=== PATIENT | male | born 1975 | race Two or more races ===

== ENCOUNTER 2024-02-03 06:33 | Emergency (ER) | payer OTHER, SELFPAY ==
[2024-02-03 06:37] VITALS: BMI 28.2
[2024-02-03 06:39] VITALS: BP 121/77
[2024-02-03 07:00] VITALS: BP 127/81
[2024-02-03 07:03] LABS: % Basophils 0.4 % (0-2); % Eosinophils 0.1 % (0-6); % Immature Granulocytes 0.3 % (0-0.5); % Lymphocytes 13.7 % (20.5-51.1); % Monocytes 9.6 % (1.7-9.3); % Neutrophils 75.9 % (42.2-75.2); Absolute Lymphocytes 1.4 10^3/uL (1.2-3.4); Absolute Neutrophils 7.5 10^3/uL (1.4-6.5); Hematocrit 42.8 % (39.0-52.0); Hemoglobin 15.2 g/dL (13.0-18.0); Mean Corp Hgb Conc. 35.5 g/dL (33.0-37.0); Mean Corpuscular Hgb 29.2 pg (27.0-31.0); Mean Corpuscular Volume 82.3 fL (80.0-94.0); Mean Platelet Volume 10.8 fL (7.4-10.4); Nucleated Red Blood Cells % 0 % (-); Platelet Count 195 10^3/uL (130-400); Red Cell Dist. Width 13.6 % (11.5-14.5); White Blood Cell Count 9.9 10^3/uL (4.8-10.8)
[2024-02-03] MEDS: NSS 1000 IV ×2 (07:13→09:55)
[2024-02-03] MEDS: TYLENOL 1000 MG PO (07:13)
[2024-02-03 07:27] LABS: ALT (SGPT) 42 U/L (0-50); AST (SGOT) 47 U/L (17-59); Albumin 4.9 g/dl (3.5-5.0); Alkaline Phosphatase 57 U/L (38-126); Blood Urea Nitrogen 16 mg/dl (9-20); Calcium 9.4 mg/dl (8.4-10.2); Carbon Dioxide 26 mmol/L (22-30); Chloride 96 mmol/L (98-107); Estimated Creatinine Clearance 101 ml/min; Glucose 157 mg/dl (70-99); Potassium 3.8 mmol/L (3.5-5.1); Sodium 138 mmol/L (135-145); Total Bilirubin 0.5 mg/dl (0.2-1.3); Total Protein 7.6 g/dl (6.3-8.2); eGFR > 60.00
--- NOTE | 2024-02-03 07:33 | ED.GENMED ---
History of Present Illness
General
Chief Complaint: Fainting/Passed Out
Source: patient
Exam Limitations: none
Time Seen by Provider: 02/03/24 06:45
History of Present Illness
History of Present Illness:
Patient felt ill upon returning from a trip to [facility]. Fever chills started on the plane. Some minimal cough and sore throat. Patient has been taking Tylenol. Last dose last evening. No abdominal pain urinary symptoms rash etc. Patient passed
out briefly this morning. No trauma related to this episode.
Past History
Past History
ED Past Medical History: Hypercholesterolemia and Other (Prediabetic)
Review of Systems
Review of Systems
All Other Systems: Not applicable
Constitutional: Reports fever and chills
Respiratory: Reports cough
ABD/GI: Reports no symptoms
: Reports no symptoms
Phy Exam
Physical Exam
Physical Exam:
GENERAL: Alert and oriented. Generally weak. Needed assistance sitting up. However nontoxic
EYE: Orbits normal.
NECK: Supple, no significant adenopathy.
ENT: Pharynx with mild diffuse erythema
CARDIAC: Tachycardic and regular no murmur
LUNGS: Clear breath sounds,normal
ABDOMEN: Soft, very minimal left lower quadrant tenderness. No rebound or guarding no mass or hernia
NEUROLOGICAL: Alert and oriented , grossly non-focal
SKIN: Warm and dry, no rash or lesion, no discoloration, skin intact.
MUSCULOSKELETAL: No edema,no deformity.Good color
PSYCH: Normal and appropriate interaction.
Course
Orders/Labs/Results
Orders:
Orders
02/03/24 06:35
EKG [Electrocardiogram (*1)] Urgent
Reason for Study: Syncope
EKG- Treatment ONCE
02/03/24 06:48
COVID-19 Antigen Urgent
Source: Nasal Swab
Complete Blood Count/With Diff Urgent
Comprehensive Metabolic Panel Urgent
02/03/24 06:52
Influenza A+B Rapid Molecular Urgent
QUIANA Source: Nasal Swab
Specimen Description:
02/03/24 06:54
Cardiac Monitoring- Treatment ONCE
IV Insert/Care/Rem.- Treatment PRN
0.9% Sodium Chloride 1000 ml [Nss] 1,000 ml IV BOLUS
Acetaminophen [Tylenol] 1,000 mg PO NOW STA
Pulse Ox/cont/shift [RESP] Urgent
Quantity: 1
02/03/24 06:55
CXR2 [CR Chest - 2 Views ] Urgent
Comment:
Reason For Exam: fever syncope
02/03/24 07:19
Lactic Acid Q4H
Comment: CANCEL 2nd LACTIC ACID IF 1st LACTIC ACID IS LESS THAN 2
Procalcitonin Urgent
PCT Algorithmm Indication: Sepsis
Rapid Strep Group A Urgent
QUIANA Source: Throat/Pharynx
Specimen Description:
Date Specimen was Collected: 02/03/24
Time Specimen was Collected: 07:18
Throat Culture [Throat Culture, Comprehensive] Urgent
QUIANA Source: Throat/Pharynx
Specimen Description:
Date Specimen was Collected: 02/03/24
Time Specimen was Collected: 07:18
02/03/24 09:51
Ketorolac [Toradol] 15 mg IV NOW STA
02/03/24 09:52
0.9% Sodium Chloride 1000 ml [Nss] 1,000 ml IV BOLUS
02/03/24 11:00
Lactic Acid Q4H
Comment: CANCEL 2nd LACTIC ACID IF 1st LACTIC ACID IS LESS THAN 2
Abnormal Lab Results
02/03/24
06:48
MPV 10.8 H fL
(7.4-10.4)
Absolute Neuts (auto) 7.5 H 10^3/uL
(1.4-6.5)
Absolute Monos (auto) 1.0 H 10^3/uL
(0.1-0.6)
Neutrophils % 75.9 H %
(42.2-75.2)
Lymphocytes % 13.7 L %
(20.5-51.1)
Monocytes % 9.6 H %
(1.7-9.3)
Chloride 96 L mmol/L
(98-107)
Glucose 157 H mg/dl
(70-99)
02/03/24 06:48
02/03/24 06:48
Vital Signs
Initial and Last Documented VS:
Initial Vital Signs
Temp
103.3 F H
02/03/24 06:37
Last Documented Vital Signs
Temp Pulse Resp BP Pulse Ox
99.7 F 100 16 115/76 95
02/03/24 10:18 02/03/24 08:00 02/03/24 08:00 02/03/24 09:13 02/03/24 10:45
MDM/Problems Addressed
Differential Diagnosis Includes:
Fever infectious issues and syncope. Syncope described as likely just secondary to the fever and dehydration. Not describing a drop attack or arrhythmia syncope. Focality of fever with some cough and pharyngitis. Very minimal left lower quadrant
tenderness although patient does not describe any abdominal pain. Unlikely to be the source although if we find no other source would consider abdominal CT. Fluids antipyretics workup in progress
*Radiology
Radiology exam reviewed: preliminary read by ED provider (Negative) and radiology read reviewed (Negative)
*Pulse Oximetry
Patient hypoxic: no
*Critical Care Note
Total Time (30-74mins, 75-104mins- exclusive of procedures): Not Applicable
Update Note
Update Note:
Patient feels much better. Influenza positive. All other testing negative. Vital signs stable. No indication for admission antibiotics etc. Did discuss Tamiflu. Patient is near the 48-hour vidal. Patient will hold off on this management.
Conservative management and follow-up
ED Attending Note
-
Portions of this chart may have been created with voice recognition software.� Occasional wrong word or��sound alike� substitutions may have occurred due to the inherent limitations of voice recognition software.
Discharge Plan
Departure
Patient Disposition: Home (Routine Discharge)
Date of Disposition: 02/03/24
Time of Disposition: 10:45
Patient with high blood pressure during this ER visit?: No
Discharge Problem:
Influenza, Syncope
Instructions: Syncope (Fainting) (DC), Flu, Adult ED
Referrals:
Vane Maldonado MD [Family Provider] - Follow up in 2-3 days
Interventions
Interventions:
*Risk Screen - Suicide Last Done: 02/03/24 06:37
*General Assessment Last Done: 02/03/24 06:37
*Neglect/Abuse Screening Last Done: 02/03/24 06:37
ED- Fall Risk Assessment Last Done: 02/03/24 08:57
*ED COVID-19 Vaccine History Last Done: 02/03/24 06:37
*Nursing Disposition Last Done: 02/03/24 11:05
ED- Cardiac Assessment Last Done: 02/03/24 06:45
ED- Neurological Assessment Last Done: 02/03/24 06:45
Discharge Date and Time
Discharge Date/Time: 02/03/24 11:05
Print Language: THAI
[2024-02-03 07:43] LABS: COVID-19 Antigen Negative (Negative)
[2024-02-03 07:49] LABS: Lactic Acid 1.3 mmol/L (0.7-2.0)
[2024-02-03 07:55] LABS: Procalcitonin 0.08 ng/ml (0.0-0.25)
[2024-02-03 08:00] VITALS: BP 121/84
[2024-02-03 09:13] VITALS: BP 115/76
[2024-02-03] MEDS: TORADOL 15 MG IV (09:55)
== END 2024-02-03 11:05 | disposition home or self-care (01) ==
LOC: EMR 06:33
PROVIDERS: EMERGENCY PHYSICIAN Emergency Medicine; FAMILY PHYSICIAN Family Medicine
DX: R55 Syncope and collapse (principal); J10.1 Influenza due to other identified influenza virus with other respiratory manifestations; Z11.52 Encounter for screening for COVID-19; E78.00 Pure hypercholesterolemia, unspecified; R73.03 Prediabetes; Z91.048 Other nonmedicinal substance allergy status
CPT/HCPCS: 99285; 96374; 96361 ×2; 94760; 71046; 80053; 83605; 84145; 85025; 87070; 87502; 87811; 87880; 93005